=== PATIENT | female | born 1945 | race Caucasian/White ===

== ENCOUNTER → 2021-02-10 | Outpatient (CLI) | payer OTHER ==
--- NOTE | 2021-02-16 18:09 | SLEEPHOME ---
DATE: 02/10/2021 ORDERED BY: BRITTANY Ferguson Diagnostic home sleep testing was performed due to concern for the obstructive sleep apnea syndrome in this patient with a history of hypersomnia. For testing, a nocturnal T3 respiratory monitoring device was used. Continuous record was made of pulse, oxygen saturation, air flow, chest and abdominal strain, and body position. Nine hours and 59 minutes of data were reviewed. There were 9 hours and 2 minutes marked as time in bed. During the interval marked time in bed, there were 52 respiratory events identified of 10 seconds in duration or greater for a respiratory event index of 5.8. The events were primarily obstructive. Baseline pulse rate was 72. Pulse rate ranged 59 to 102. Baseline saturation was 92%. Saturations fell to 86% and testing was performed in both the supine and nonsupine positions. IMPRESSION: Abnormal home sleep testing with repetitive respiratory events and oxygen desaturations to 86% with a respiratory event index of 5.8 is consistent with the obstructive sleep apnea syndrome. RECOMMENDATION: As the events were more frequent in the supine posture, sleep position retraining for avoidance of the supine posture would be recommended. Should sleep symptoms persist, a referral for a formal sleep evaluation should be considered.
== END ==
LOC: M SLEEP HO 10:31
PROVIDERS: ATTEND Physician Assistant
DX: G47.10 Hypersomnia, unspecified (principal)

== ENCOUNTER → 2022-03-09 | Outpatient (REF) | payer OTHER, MEDICARE | LOC: M SFHCDERM 13:11 | PROVIDERS: ATTEND Nurse Practitioner Family | DX: D23.9 Other benign neoplasm of skin, unspecified (principal) ==